=== PATIENT | female | born 1950 | race Caucasian/White ===

== ENCOUNTER 2020-08-23 08:46 | Day surgery (SDC) | payer MEDICARE, OTHER ==
[2020-08-23] MEDS ORDERED: Sodium Chloride 0.9% 1,000 ML IV SCH (09:30)
[2020-08-23] MEDS ORDERED: Midazolam 1 MG/ML 2 ML SDV ONE ×2 (09:43→10:16)
[2020-08-23] MEDS ORDERED: fentaNYL 100 MCG/2 ML SDV ONE ×2 (09:43→10:16)
[2020-08-23] MEDS ORDERED: Propofol 200 MG/20 ML SDV ONE ×2 (09:43→10:16)
--- NOTE | 2020-08-23 15:42 | OR ---
DATE OF PROCEDURE: 08/23/2020 SURGEON: Tony Luis MD PROCEDURE: Esophagogastroduodenoscopy. FINDINGS/PATHOLOGY: 1. Polypoid type lesion in duodenum (biopsied multiple times using cold biopsy forceps). 2. Irregular Z-line and small tongue-like protrusion in the gastroesophageal junction concerning for reflux disease (biopsied in all 4 quadrants using cold biopsy forceps). 3. Normal colonoscopy (no evidence of rectocele at this time). 4. Hiatal hernia, approximately 4 cm in size. COMPLICATIONS: None. RD SCIENTIST: None. ANESTHESIA: MAC. PREOPERATIVE DIAGNOSES: Epigastric pain/concern for rectocele/screening colonoscopy. POSTOPERATIVE DIAGNOSES: Epigastric pain/concern for rectocele/screening colonoscopy. RISKS: Risks, benefits, alternatives, and limitations including but not limited to infection, bleeding, perforation, and false positives and false negatives were explained to the patient. They wished to proceed. PROCEDURE IN DETAIL: The patient was placed in left lateral decubitus position. The EGD scope was introduced and advanced into the duodenum. Within the duodenal bulb proper and in the first part of duodenum, there was a polypoid type lesion without evidence of bleeding or inflammation. This was biopsied using cold biopsy forceps. The scope was brought back into the stomach. No significant abnormalities were noted. We felt what was most likely a 4 cm hiatal hernia, which would have a large hernia defect associated with this was noted. This was in conjunction with the GE junction, which showed irregular Z-line and a small tongue-like protrusion concerning for reflux disease, which was biopsied using cold biopsy forceps in all 4 quadrants. There was no narrowing effect. The air was removed from the stomach. The esophagus was normal. Digital rectal exam was performed next. On inspection, the patient did not have an active rectocele at this time, although she could have a rectocele that was retracted internally now, however, none was noted at this time. The scope was introduced and advanced atraumatically to the appendiceal orifice. A photo was taken of this. The scope was brought back to the ascending, transverse, and descending colon and retroflexed. No evidence of old or new blood. No masses. No polyps. No colitis. No diverticulosis. No abnormalities on retroflexion. Greater than 8 minutes was spent removing the scope. The prep was acceptable, approximately 85% to 90% of luminal surface could be seen. Recommend repeat colonoscopy in approximately 10 years. Tony Luis MD /[id number]
== END 2020-08-23 12:14 | disposition home or self-care (01) ==
LOC: JP.SDS 08:46
PROVIDERS: ATTEND Surgery
DX: Z12.11 Encounter for screening for malignant neoplasm of colon (principal); K29.50 Unspecified chronic gastritis without bleeding; K22.8 Other specified diseases of esophagus; K44.9 Diaphragmatic hernia without obstruction or gangrene; I10 Essential (primary) hypertension; K21.9 Gastro-esophageal reflux disease without esophagitis
CPT/HCPCS: 43239; G0121; J2250; J2704; J3010; J7030; 88305; 88342

== ENCOUNTER 2021-10-16 07:56 | Day surgery (SDC) | payer MEDICARE, OTHER ==
[~2021-10-16 07:56] MED LIST: Bupivacaine 0.5% 30 ML SDV ONE; Lidocaine 1% with EPINEPHrine 1:100,000 50 ML MDV ONE; Midazolam 1 MG/ML 2 ML SDV ONE; Propofol 200 MG/20 ML SDV ONE; fentaNYL 100 MCG/2 ML SDV ONE
[2021-10-16] MEDS ORDERED: Acetaminophen 500 MG Tab PO ONE (08:00)
[2021-10-16] MEDS ORDERED: Dextrose 5%-Lactated Ringers 1,000 ML IV SCH (08:30)
[2021-10-16] MEDS ORDERED: Levofloxacin/Dextrose 5%-Water 500 MG in Premix Bag 1 BAG IV ONE (09:15)
== END 2021-10-16 13:10 | disposition home or self-care (01) ==
LOC: JP.SDS 07:56
PROVIDERS: ATTEND Surgery
DX: D17.1 Benign lipomatous neoplasm of skin and subcutaneous tissue of trunk (principal); I10 Essential (primary) hypertension; K21.9 Gastro-esophageal reflux disease without esophagitis; F32.A Depression, unspecified; Z87.891 Personal history of nicotine dependence
CPT/HCPCS: 21933; 88304; A9270; J1956; J2250; J2704; J3010; J3490; J7121

== ENCOUNTER 2023-09-09 06:32 | Day surgery (SDC) | payer MEDICARE, OTHER ==
[2023-09-09] MEDS ORDERED: fentaNYL 50 MCG/ML SDV ONE (07:17)
[2023-09-09] MEDS ORDERED: Propofol 200 MG/20 ML SDV ONE ×2 (07:17→07:55)
[2023-09-09] MEDS: Sodium Chloride 0.9% 1,000 ML IV SCH (07:30)
[2023-09-09] MEDS ORDERED: Atropine 0.4 MG/ML SDV ONE (07:52)
== END 2023-09-09 09:25 | disposition home or self-care (01) ==
LOC: JP.SDS 06:32
PROVIDERS: ATTEND Surgery
DX: Z12.11 Encounter for screening for malignant neoplasm of colon (principal); D12.2 Benign neoplasm of ascending colon; I10 Essential (primary) hypertension; K21.9 Gastro-esophageal reflux disease without esophagitis; E78.5 Hyperlipidemia, unspecified
CPT/HCPCS: 00811; 45385; J0461; J2704; J3010; J7030

== ENCOUNTER 2024-09-04 06:26 | Day surgery (SDC) | payer MEDICARE, OTHER ==
[2024-09-04 06:49] LABS: PLATELET COUNT,PLT 291.0 K/uL (130-375); RED BLOOD CELL COUNT 4.8 M/uL (3.77-5.24); WHITE BLOOD CELL COUNT,WBC 4.7 K/uL (3.2-11.0)
[2024-09-04 07:04] LABS: BLOOD UREA NITROGEN,BUN 14.0 mg/dL (7-18); CARBON DIOXIDE,CO2 32.0 mmol/L (21-32); CHLORIDE,CL 101.0 mmol/L (100-108); CREATININE 0.8 mg/dL (0.6-1.0); EST CRCL DRUG DOSING (CG) 45.14 mL/min; ESTIMATED GFR 76.0 mL/min (>60); GLUCOSE RANDOM 96.0 mg/dL (74-106); POTASSIUM,K 3.6 mmol/L (3.6-5.2); SODIUM,NA 138.0 mmol/L (140-148)
[2024-09-04] MEDS: Nozin Nasal Sanitizer NASBOTH ONE (07:15)
[2024-09-04] MEDS: Lactated Ringers 1,000 ML IV SCH (07:26)
[2024-09-04] MEDS ORDERED: Midazolam 1 MG/ML 2 ML SDV ONE (07:33)
[2024-09-04] MEDS ORDERED: Propofol 200 MG/20 ML SDV ONE (07:33)
[2024-09-04] MEDS ORDERED: fentaNYL 100 MCG/2 ML SDV ONE (07:33)
== END 2024-09-04 10:10 | disposition home or self-care (01) ==
LOC: JP.SDS 06:26
PROVIDERS: ATTEND Specialist
DX: G56.02 Carpal tunnel syndrome, left upper limb (principal); M65.342 Trigger finger, left ring finger; M65.842 Other synovitis and tenosynovitis, left hand; I10 Essential (primary) hypertension; F17.200 Nicotine dependence, unspecified, uncomplicated; Z88.0 Allergy status to penicillin; Z88.8 Allergy status to other drugs, medicaments and biological substances; Z79.899 Other long term (current) drug therapy
CPT/HCPCS: 26055; 36415; 64721; 80048; 85027; A9270; J0665; J2250; J2704; J3010; J7120